=== PATIENT | male | born 1930 | race Two or more races ===

== ENCOUNTER 2021-09-05 14:30 | Emergency (ER) | payer MEDICARE ==
[~2021-09-05] VITALS: Ht 175.3 cm; Wt 72.6 kg
[2021-09-05 16:03] VITALS: BP 147/91
== END 2021-09-05 16:05 | disposition home or self-care (01) ==
LOC: ER 14:30
DX: G44.309 Post-traumatic headache, unspecified, not intractable (principal)
CPT/HCPCS: 70450